=== PATIENT | female | born 1990 | race Two or more races ===

== ENCOUNTER 2021-10-07 14:00 | Outpatient (RCR) | payer OTHER, MEDICAID, SELFPAY | END 2021-11-25 10:31 | disposition home or self-care (01) | LOC: HO.PT 14:00 | PROVIDERS: PCP Internal Medicine; Visit Provider Obstetrics & Gynecology | DX: R39.15 Urgency of urination (principal) | CPT/HCPCS: 97110; 97112; 97161 ==